=== PATIENT | female | born 1980 | race Caucasian/White ===

== ENCOUNTER 2021-02-05 14:54 | Emergency (ER) | payer MEDICAID ==
[2021-02-05] MEDS ORDERED: Sodium Chloride 0.9% 10 ML Syringe FLUSH PRN (16:17)
[2021-02-05] MEDS ORDERED: Ondansetron 4 MG/2 ML SDV IVPUSH ONE (16:17)
--- NOTE | 2021-02-05 16:25 | EDM.PDOC ---
ED HPI GENERAL MEDICAL PROBLEM - General Chief Complaint: Abdominal Pain Stated Complaint: abdominal pain Time Seen by Provider: 02/05/21 16:01 Source of Information: Reports: Patient, RN Notes Reviewed History Limitations: Reports: No Limitations - History of Present Illness INITIAL COMMENTS - FREE TEXT/NARRATIVE: Patient is a 40-year-old female who presents to the ER for her generalized abdomen pain. Patient notes she has had issues with her abdomen pain for some time. She was evaluated at one point and was told that she was constipated. States that the pain has been worsening again, over the last month or 2. States this is more general, and no focal areas of discomfort. She is not having any dysuria, frequency or urgency, she is having slight bit of nausea but no vomiting or diarrhea. Patient states she last had a bowel movement yesterday that was normal for her. Denying any fevers or chills, cough or shortness of breath. States that she believes she may have a history of ovarian cyst as well, but she cannot remember when she was told that either. Bilateral Lower Abdomen Pain Score (Numeric/FACES): 5 - Related Data Allergies Allergy/AdvReac Type Severity Reaction Status Date / Time No Known Allergies Allergy Verified 02/05/21 16:07 Home Meds: Home Meds PARoxetine [Paxil] 40 mg PO DAILY 03/03/18 [History] busPIRone [Buspar] 15 mg PO BID 03/03/18 [History] Past Medical History - Past Health History Medical/Surgical History: Denies Medical/Surgical History Respiratory History: Reports: Asthma Musculoskeletal History: Reports: Arthritis Psychiatric History: Reports: Anxiety, Depression - Infectious Disease History Infectious Disease History: Reports: Novel Coronavirus - Past Surgical History Female Surgical History: Reports: Section Social & Family History - Caffeine Use Caffeine Use: Reports: Soda ED ROS GENERAL - Review of Systems Review Of Systems: Comprehensive ROS is negative, except as noted in HPI. ED EXAM, GI/ABD - Physical Exam Exam: See Below Exam Limited By: No Limitations General Appearance: Alert, WD/WN, No Apparent Distress Cardiovascular: Normal Peripheral Pulses, Regular Rate, Rhythm, No Edema, No Murmur GI/Abdominal Exam: Normal Bowel Sounds, Soft, No Distention, No Mass, Tender (generalized) Neurological: Alert, Oriented, Normal Cognition, No Motor/Sensory Deficits Psychiatric: Normal Affect, Normal Mood Skin Exam: Warm, Dry, Intact, Normal Color, No Rash Course - Vital Signs Last Recorded V/S: Last Vital Signs Temp 97.8 F 02/05/21 18:21 Pulse 84 02/05/21 18:21 Resp 18 02/05/21 18:21 BP 104/69 02/05/21 18:21 Pulse Ox 98 02/05/21 18:21 - Orders/Labs/Meds Orders: Active Orders 24 hr Category Date Time Status Peripheral IV Care [RC] . DIRECTED Care 02/05/21 16:18 Ordered Sodium Chloride 0.9% [Normal Saline] 1,000 ml Med 02/05/21 16:30 Ordered IV ASDIRECTED Sodium Chloride 0.9% [Saline Flush] Med 02/05/21 16:17 Ordered 10 ml FLUSH ASDIRECTED PRN Peripheral IV Insertion Adult [OM.PC] Stat Oth 02/05/21 16:17 Ordered Medication Orders Sodium Chloride (Normal Saline) 1,000 mls @ 999 mls/hr IV ASDIRECTED KIMBERLY Last Admin: 02/05/21 16:39 Dose: 999 mls/hr Documented by: JOHN Sodium Chloride (Sodium Chloride 0.9% 10 Ml Syringe) 10 ml FLUSH ASDIRECTED PRN PRN Reason: Keep Vein Open Last Admin: 02/05/21 16:40 Dose: 10 ml Documented by: JOHN Labs: Laboratory Tests 02/05/21 02/05/21 02/05/21 Range/Units 16:30 16:30 16:35 WBC 11.29 H (3.98-10.04) K/mm3 RBC 4.77 (3.98-5.22) M/mm3 Hgb 14.5 (11.2-15.7) gm/dl Hct 42.8 (34.1-44.9) % MCV 89.7 (79.4-94.8) fl MCH 30.4 (25.6-32.2) pg MCHC 33.9 (32.2-35.5) g/dl RDW Std Deviation 43.8 (36.4-46.3) fL Plt Count 314 (182-369) K/mm3 MPV 9.0 L (9.4-12.3) fl Neut % (Auto) 62.2 (34.0-71.1) % Lymph % (Auto) 29.3 (19.3-51.7) % [place] % (Auto) 5.8 (4.7-12.5) % Eos % (Auto) 2.0 (0.7-5.8) Baso % (Auto) 0.4 (0.1-1.2) % Neut # (Auto) 7.02 H (1.56-6.13) K/mm3 Lymph # (Auto) 3.31 (1.18-3.74) K/mm3 [place] # (Auto) 0.66 H (0.24-0.36) K/mm3 Eos # (Auto) 0.23 (0.04-0.36) K/mm3 Baso # (Auto) 0.04 (0.01-0.08) K/mm3 Sodium (136-145) mEq/L Potassium (3.5-5.1) mEq/L Chloride (98-107) mEq/L Carbon Dioxide (21-32) mEq/L Anion Gap (5-15) BUN (7-18) mg/dL Creatinine (0.55-1.02) mg/dL Est Cr Clr Drug Dosing mL/min Estimated GFR (MDRD) (>60) mL/min BUN/Creatinine Ratio (14-18) Glucose (70-99) mg/dL Calcium (8.5-10.1) mg/dL Total Bilirubin (0.2-1.0) mg/dL AST (15-37) U/L ALT (14-59) U/L Alkaline Phosphatase (46-116) U/L C-Reactive Protein (<1.0) mg/dL Total Protein (6.4-8.2) g/dl Albumin (3.4-5.0) g/dl Globulin gm/dL Albumin/Globulin Ratio (1-2) Lipase (73-393) U/L Urine Color Yellow (Yellow) Urine Appearance Clear (Clear) Urine pH 6.5 (5.0-8.0) Ur Specific [place] 1.015 (1.005-1.030) Urine Protein Negative (Negative) Urine Glucose (UA) Negative (Negative) Urine Ketones Negative (Negative) Urine Occult Blood Trace-lysed H (Negative) Urine Nitrite Negative (Negative) Urine Bilirubin Negative (Negative) Urine Urobilinogen 0.2 (0.2-1.0) Ur Leukocyte Esterase Negative (Negative) Urine RBC 0-5 (0-5) /hpf Urine WBC 0-5 (0-5) /hpf Ur Squamous Epith Cells 10-20 H (0-5) /hpf Urine Bacteria Few (FEW) /hpf Urine Mucus Not seen (FEW) /hpf Urine HCG, Qual Negative (NEGATIVE) 02/05/21 Range/Units 16:35 WBC (3.98-10.04) K/mm3 RBC (3.98-5.22) M/mm3 Hgb (11.2-15.7) gm/dl Hct (34.1-44.9) % MCV (79.4-94.8) fl MCH (25.6-32.2) pg MCHC (32.2-35.5) g/dl RDW Std Deviation (36.4-46.3) fL Plt Count (182-369) K/mm3 MPV (9.4-12.3) fl Neut % (Auto) (34.0-71.1) % Lymph % (Auto) (19.3-51.7) % [place] % (Auto) (4.7-12.5) % Eos % (Auto) (0.7-5.8) Baso % (Auto) (0.1-1.2) % Neut # (Auto) (1.56-6.13) K/mm3 Lymph # (Auto) (1.18-3.74) K/mm3 [place] # (Auto) (0.24-0.36) K/mm3 Eos # (Auto) (0.04-0.36) K/mm3 Baso # (Auto) (0.01-0.08) K/mm3 Sodium 136 (136-145) mEq/L Potassium 3.6 (3.5-5.1) mEq/L Chloride 100 (98-107) mEq/L Carbon Dioxide 26 (21-32) mEq/L Anion Gap 13.6 (5-15) BUN 8 (7-18) mg/dL Creatinine 0.8 (0.55-1.02) mg/dL Est Cr Clr Drug Dosing 70.54 mL/min Estimated GFR (MDRD) > 60 (>60) mL/min BUN/Creatinine Ratio 10.0 L (14-18) Glucose 106 H (70-99) mg/dL Calcium 8.9 (8.5-10.1) mg/dL Total Bilirubin 0.3 (0.2-1.0) mg/dL AST 56 H (15-37) U/L ALT 88 H (14-59) U/L Alkaline Phosphatase 70 (46-116) U/L C-Reactive Protein 0.5 (<1.0) mg/dL Total Protein 7.8 (6.4-8.2) g/dl Albumin 3.8 (3.4-5.0) g/dl Globulin 4.0 gm/dL Albumin/Globulin Ratio 1.0 (1-2) Lipase 161 (73-393) U/L Urine Color (Yellow) Urine Appearance (Clear) Urine pH (5.0-8.0) Ur Specific [place] (1.005-1.030) Urine Protein (Negative) Urine Glucose (UA) (Negative) Urine Ketones (Negative) Urine Occult Blood (Negative) Urine Nitrite (Negative) Urine Bilirubin (Negative) Urine Urobilinogen (0.2-1.0) Ur Leukocyte Esterase (Negative) Urine RBC (0-5) /hpf Urine WBC (0-5) /hpf Ur Squamous Epith Cells (0-5) /hpf Urine Bacteria (FEW) /hpf Urine Mucus (FEW) /hpf Urine HCG, Qual (NEGATIVE) Meds: Medications Generic Name Dose Route Start Last Admin Trade Name Freq PRN Reason Stop Dose Admin Sodium Chloride 1,000 mls @ 999 mls/hr 02/05/21 16:30 02/05/21 16:39 Normal Saline IV 999 mls/hr ASDIRECTED KIMBERLY Administration Sodium Chloride 10 ml 02/05/21 16:17 02/05/21 16:40 Sodium Chloride 0.9% 10 Ml Syringe FLUSH 10 ml ASDIRECTED PRN Administration Keep Vein Open Discontinued Medications Generic Name Dose Route Start Last Admin Trade Name Freq PRN Reason Stop Dose Admin Diatrizoate Meglum/Diatrizoate Sod 90 ml 02/05/21 16:35 02/05/21 18:10 Diatrizoate Meglumine/Diatrizoate Sodium 37% 120 Ml Bottle PO 02/05/21 16:36 45 ml ONETIME ONE Administration Iopamidol 100 ml 02/05/21 16:35 02/05/21 18:10 Iopamidol 612 Mg/Ml 100 Ml Bottle IVPUSH 02/05/21 16:36 100 ml ONETIME ONE Administration Iopamidol 25 ml 02/05/21 16:35 02/05/21 18:10 Iopamidol 612 Mg/Ml 50 Ml Sdv IVPUSH 02/05/21 16:36 25 ml ONETIME ONE Administration Ondansetron HCl 4 mg 02/05/21 16:17 02/05/21 16:40 Ondansetron 4 Mg/2 Ml Sdv IVPUSH 02/05/21 16:18 4 mg ONETIME ONE Administration Sodium Chloride 10 ml 02/05/21 16:35 02/05/21 18:11 Sodium Chloride 0.9% 10 Ml Syringe FLUSH 02/05/21 16:36 10 ml ONETIME ONE Administration - Re-Assessments/Exams Free Text/Narrative Re-Assessment/Exam: 02/05/21 16:24 Patient presents to the ER for evaluation of her generalized abdominal discomfort. This does seem to be a worsening for chronic issues. We will go ahead and get some basic labs, and abdomen pelvis CT for further evaluation. 02/05/21 19:08 Laboratory evaluation demonstrates no acute abnormalities. Urinalysis is also negative for any sign of infection. Patient's CT demonstrates no acute abnormalities however the appendix was not definitely visualized. Patient did have quite a bit of stool throughout her colon, patient appreciated by myself and Dr. Carrillo. Her uterus was a little bit enlarged as well, and I did call Dr. Anaya to have him reexamined this, and he had no major concerns. We will have her follow-up with [facility] or her regular doctor at her next clinic appointment for ongoing management otherwise there is no major reasons to keep her in the ER any longer. Departure - Departure Time of Disposition: 19:09 Disposition: Home, Self-Care 01 Condition: Good Clinical Impression: Enlarged uterus Constipation Qualifiers: Constipation type: other constipation type Qualified Code(s): K59.09 - Other constipation - Discharge Information *PRESCRIPTION DRUG MONITORING PROGRAM REVIEWED*: No *COPY OF PRESCRIPTION DRUG MONITORING REPORT IN PATIENT ERNESTO: No Instructions: Constipation, Adult, [id number] Referrals: Sandy Morgan PA-C [Primary Care Provider] - Forms: ED Department Discharge Additional Instructions: You were evaluated in the ER today for your abdominal discomfort. You had labs, and a CT done at today's visit, all of which are fairly unremarkable. Your CT did demonstrate an enlarged uterus, but no obvious lesions or tumors identified. You do have quite a bit of stool throughout your colon, which can be the cause of your generalized abdominal pain. The oral contrast given to you at today's visit, will provide somewhat of a laxative effect and should help you have a few good bowel movements. Recommend you take stool softeners on a daily basis to promote good bowel health something like Colace, Dulcolax or MiraLAX on a daily basis would provide you with this. You may follow-up with your primary care doctor or [facility] for the findings of your enlarged uterus on CT. If you develop any sort of fevers, worsening abdominal pain, or any other increase in symptoms, do not hesitate to return to the ER for reevaluation. Sepsis Event Note (ED) - Evaluation Sepsis Screening Result: No Definite Risk - Focused Exam Vital Signs: Vital Signs Temp Pulse Resp BP Pulse Ox 02/05/21 18:21 97.8 F 84 18 104/69 98 02/05/21 15:57 97.6 F 91 18 124/84 99 - My Orders Last 24 Hours: My Active Orders 02/05/21 16:17 Sodium Chloride 0.9% [Saline Flush] 10 ml FLUSH ASDIRECTED PRN Peripheral IV Insertion Adult [OM.PC] Stat 02/05/21 16:18 Peripheral IV Care [RC] . DIRECTED 02/05/21 16:30 Sodium Chloride 0.9% [Normal Saline] 1,000 ml IV ASDIRECTED - Assessment/Plan Last 24 Hours: My Active Orders 02/05/21 16:17 Sodium Chloride 0.9% [Saline Flush] 10 ml FLUSH ASDIRECTED PRN Peripheral IV Insertion Adult [OM.PC] Stat 02/05/21 16:18 Peripheral IV Care [RC] . DIRECTED 02/05/21 16:30 Sodium Chloride 0.9% [Normal Saline] 1,000 ml IV ASDIRECTED
[2021-02-05] MEDS ORDERED: Sodium Chloride 0.9% 1,000 ML IV SCH (16:30)
[2021-02-05] MEDS ORDERED: Iopamidol 612 MG/ML 50 ML SDV IVPUSH ONE (16:35)
[2021-02-05] MEDS ORDERED: Iopamidol 612 MG/ML 100 ML Bottle IVPUSH ONE (16:35)
[2021-02-05] MEDS ORDERED: Diatrizoate Meglumine/Diatrizoate Sodium 37% 120 ML Bottle PO ONE (16:35)
[2021-02-05] MEDS ORDERED: Sodium Chloride 0.9% 10 ML Syringe FLUSH ONE (16:35)
--- NOTE | 2021-02-05 18:04 | CT ---
CT abdomen and pelvis Technique: Multiple axial sections were obtained from above the dome of the diaphragm inferiorly through the pubic symphysis. Intravenous and oral contrast were utilized. Delayed images were also obtained through the pelvis. Reconstructed coronal and sagittal images were obtained. Comparison: No prior abdominal imaging is available. Findings: Visualized lung bases show nothing acute. Liver shows diffuse fatty infiltration. Spleen size is normal. Adrenal glands show no nodule. Pancreas shows no discrete abnormality. Gallbladder contains no calcified gallstones. Small scattered retroperitoneal lymph nodes are seen which are felt to be within normal limits. Kidneys show symmetric contrast enhancement with no hydronephrosis or mass being seen. Abdominal aorta shows no aneurysm. No mesenteric abnormalities are seen. No pelvic mass or adenopathy is seen. Appendix is not definitely visualized. Delayed images show contrast excretion into both ureters as well as within the bladder. Bone window settings were reviewed which appear within normal limits for the patient's age. Impression: 1. Fatty infiltration within the liver. 2. Nothing acute is appreciated on CT study of the abdomen and pelvis. Diagnostic code #2
[2021-02-05 18:21] VITALS: BP 104/69; PULSE 84
== END 2021-02-05 19:30 | disposition home or self-care (01) ==
LOC: JD.ED 14:54
DX: K59.09 Other constipation (principal); N85.2 Hypertrophy of uterus
CPT/HCPCS: 36415; 74177; 80053; 81001; 81025; 83690; 85025; 86140; 96374; 99284; J2405; J7030; Q9963; Q9967

== ENCOUNTER 2023-04-12 20:22 | Emergency (ER) | payer SELFPAY ==
[2023-04-12] MEDS ORDERED: Morphine 4 MG/ML Syringe IVPUSH ONE (20:51)
[2023-04-12] MEDS ORDERED: Naloxone 0.4 MG/ML SDV IVPUSH PRN (20:51)
[2023-04-12] MEDS ORDERED: Ondansetron 4 MG/2 ML SDV IVPUSH ONE (20:52)
[2023-04-12 21:15] LABS: BASOPHILS ABSOLUTE AUTO 0.1 K/mm3 (0.0-0.2); BASOPHILS PERCENT AUTO 0.6 % (0.0-1.0); EOSINOPHILS ABSOLUTE AUTO 0.2 K/mm3 (0.0-0.4); EOSINOPHILS PERCENT AUTO 1.6 % (0.0-6.0); HEMATOCRIT 42.8 % (37.0-47.0); HEMOGLOBIN 15.2 gm/dl (12.0-16.0); IMMATURE GRAN ABSOLUTE AUTO 0.04 K/mm3 (0.00-0.05); IMMATURE GRAN PERCENT AUTO 0.3 % (0.0-0.4); LYMPHOCYTES ABSOLUTE AUTO 3.9 K/mm3 (1.0-4.8); LYMPHOCYTES PERCENT AUTO 32.9 % (24.0-44.0); MEAN CORPUSCULAR HEMOGLOBIN 31.9 pg (28.0-32.0); MEAN CORPUSCULAR HGB CONC 35.5 g/dl (32.0-36.0); MEAN CORPUSCULAR VOLUME 89.7 fl (83.0-99.0); MEAN PLATELET VOLUME 8.7 fl (9.4-12.3); MONOCYTES ABSOLUTE AUTO 0.5 K/mm3 (0.0-0.8); MONOCYTES PERCENT AUTO 4.6 % (0.0-8.0); NEUTROPHILS ABSOLUTE AUTO 7.1 K/mm3 (1.8-7.7); PLATELET COUNT,PLT 289 K/mm3 (150-400); RED BLOOD CELL COUNT 4.77 M/mm3 (4.10-5.30); WHITE BLOOD CELL COUNT,WBC 11.81 K/mm3 (3.9-11.3)
[2023-04-12 21:23] LABS: APPEARANCE,URINE CLEAR (Clear); BILIRUBIN,URINE NEGATIVE (Negative); COLOR,URINE YELLOW (Yellow); GLUCOSE,URINE TRACE (Negative); KETONES,URINE NEGATIVE (Negative); LEUKOCYTE ESTERASE,URINE NEGATIVE (Negative); NITRITE,URINE NEGATIVE (Negative); OCCULT BLOOD,URINE TRACE-INTACT (Negative); PROTEIN,URINE NEGATIVE (Negative); UROBILINOGEN,URINE 0.2 (0.2-1.0)
[2023-04-12 21:38] LABS: A/G RATIO 0.9 (1-2); ALBUMIN 3.8 g/dl (3.4-5.0); ANION GAP 13.6 (5-15); BILIRUBIN TOTAL 0.4 mg/dL (0.2-1.0); BUN/CREATININE RATIO 7.8 (14-18); C-REACTIVE PROTEIN 0.2 mg/dL (<1.0); CALCIUM 9.2 mg/dL (8.5-10.1); CREATININE 0.9 mg/dL (0.55-1.02); EST CRCL DRUG DOSING (CG) 60.82 mL/min; POTASSIUM,K 3.6 mEq/L (3.5-5.1); PROTEIN TOTAL,TP 7.9 g/dl (6.4-8.2)
[2023-04-12 21:43] LABS: BACTERIA,URINE MODERATE /hpf (FEW); MUCUS,URINE FEW /hpf (FEW); SQUAMOUS EPITHELIAL CELLS,UR 0-5 /hpf (0-5); WBC,URINE 0-5 /hpf (0-5)
[2023-04-12] MEDS ORDERED: Sodium Chloride 0.9% 10 ML Syringe FLUSH ONE (21:59)
[2023-04-12] MEDS ORDERED: Iopamidol 612 MG/ML 100 ML Bottle IVPUSH ONE (21:59)
[2023-04-12] MEDS ORDERED: Ketorolac 30 MG/ML SDV IVPUSH ONE (23:16)
[2023-04-12] MEDS ORDERED: cefTRIAXone 1 GM in Sodium Chloride 0.9% 100 ML IV ONE (23:17)
[2023-04-12] MEDS ORDERED: Sodium Chloride 0.9% 1,000 ML IV ONE (23:17)
[2023-04-12] MEDS ORDERED: Phenazopyridine 95 MG Tab PO SCH (23:40)
[2023-04-13 01:10] VITALS: BP 134/71; PULSE 69
== END 2023-04-13 00:54 | disposition home or self-care (01) ==
LOC: JD.ED 20:22
DX: N30.01 Acute cystitis with hematuria (principal); Z86.16 Personal history of COVID-19
CPT/HCPCS: 36415; 74177; 80053; 81001; 83605; 84703; 85025; 86140; 96365; 96375; 99284; A9270; J0696; J1885; J2270; J2405; J3490; J7030; Q9967